=== PATIENT | male | born 1970 | race Caucasian/White ===

== ENCOUNTER 2016-05-16 16:02 | Observation (INO) | payer MEDICAID ==
[2016-05-16 16:03] VITALS: BMI 24.0
[2016-05-16 16:50] LABS: AUTOMATED BASOPHIL 0.6 % (0-2); AUTOMATED EOSINOPHIL 0.2 % (0-5); AUTOMATED LYMPH 14.5 % (17-44); AUTOMATED MONOCYTE 6.3 % (3-10); AUTOMATED NEUTROPHIL 78.4 % (45-76); MPV 7.9 fL (7.4-10.4)
[2016-05-16 16:57] LABS: ALL NEG? YES; MDMA* NEG (NEGATIVE); METHAMPHETAMINES NEG (NEGATIVE); OXYCODONE NEG (NEGATIVE)
[2016-05-16 16:58] LABS: BLOOD UREA NITROGEN 8 MG/DL (9-20); CALCIUM 9.1 MG/DL (8.4-10.2); CALCULATED OSMOLALITY 267 MOs/Kg (270-290); CHLORIDE 105 mEq/L (98-107); ETOH-MGDL < 10 mg/dL; GLUCOSE 92 MG/DL (70-99); SODIUM LEVEL 140 mEq/L (137-146); TOTAL PROTEIN 8.1 G/DL (6.3-8.2)
[2016-05-16 17:00] LABS: LEUKOCYTES/URINE NEG (NEGATIVE); NITRITE/URINE NEG (NEGATIVE); URINE OCCULT BLOOD NEG (NEG/TRACE)
[2016-05-16] MEDS ORDERED: GUAIFENESIN 200 MG/10 ML UDC PO PRN (17:37)
[2016-05-16] MEDS ORDERED: Docusate Sodium 100 MG CAP PO PRN (17:37)
[2016-05-16] MEDS ORDERED: LORAZEPAM 0.5 MG TAB PO PRN (17:37)
[2016-05-16] MEDS ORDERED: ONDANSETRON HCL 4 MG ODT TAB PO PRN (17:37)
[2016-05-16] MEDS ORDERED: ACETAMINOPHEN 325 MG/TAB TABLET PO PRN (17:37)
[2016-05-16] MEDS ORDERED: MAGNESIUM HYDROXIDE 30 ML BOTTLE PO PRN (17:37)
[2016-05-16] MEDS ORDERED: TEMAZEPAM 15 MG CAP PO PRN (17:37)
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
[2016-05-16] MEDS ORDERED: Vaccine Screening Complete SCH (20:00)
[2016-05-16] MEDS: NICOTINE 21 MG PATCH TOP SCH (21:02)
[2016-05-17] MEDS ORDERED: PNEUMOCOCCAL 0.5 ML VIAL IM ONE (08:00)
[2016-05-17] MEDS ORDERED: FLU VACCINE (Afluria) 0.5 ML DOSE IM ONE (08:00)
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
[2016-05-17] MEDS: NICOTINE 21 MG PATCH TOP SCH (12:23)
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
--- NOTE | 2016-05-18 16:07 | TUDEPART ---
Disposition: Trans. to Other Hospital ([facility]) Condition: Fair Education/Counseling Given To: Patient Education/Counseling Given Regarding: Diagnosis, Treatment, Prognosis, Follow Up Follow-up / Referrals: None,No Provider [Primary Care Provider] - One Week Decision to Transfer Time: 16:07 - Physical Exam Constitutional: Alert (Awake), No apparent distress Oriented to: Time, Person, Place Last recorded Vital Signs: Last Vital Signs Temp 98.6 F 05/18/16 11:49 Pulse 67 05/18/16 11:49 Resp 20 05/18/16 11:49 BP 121/69 05/18/16 11:49 Pulse Ox 98 05/18/16 11:49 Oxygen Pulse Oxygen Saturation 98 O2 Device Room Air Oxygen Flow Rate Fraction of Inspired Oxygen ( FIO2) - HEENT Head: Normal ( normocephalic) Eye Exam: Normal (PERRL, EOMI, Sclera white) Oropharynx: Normal (Pharynx:Moist without exudate,Gums-no swelling) ENT EAC: Normal TMJ: Normal Nose: No Symptoms Reported (septum midline) - Respiratory/Cardiovascular Respiratory: Normal - CTA (BBS clear to auscultation without adventitious sounds ) Cardiovascular: Normal (RRR without murmur, gallop or rub) - GI Auscultation: Normal (NABS) Palpation: Normal (Soft,No rebound or guarding, non distended) Tenderness: Non tender Villanueva's Sign: Negative - Musculoskeletal Back: Normal (Non-Tender) Extremities: Normal (Normal tone, Pulses 2+ No cyanosis or edema, FROM) - Integumentary Skin: Normal, Warm, Dry Lymphatics: Normal (no adenopathy) - Neurologic Memory Impaired: Normal Motor Function: Normal (Normal tone, Pulses 2+ No cyanosis or edema, FROM) Cranial Nerve: Normal (CN II-X11 intact sensation, strength 5/5) Cerebellar: Normal Mood Description: Anxious Perception: Normal
[2016-05-18 16:49] VITALS: BP 129/77; PULSE 76; TEMP 97.4
== END 2016-05-18 17:00 ==
LOC: ED 16:02 → EDINP 17:39 → TUOBSINP 18:49
PROVIDERS: ADMIT Emergency Medicine; ATTEND Emergency Medicine
DX: R45.851 Suicidal ideations (principal); F17.210 Nicotine dependence, cigarettes, uncomplicated
CPT/HCPCS: 36415; 80053; 80307; 81001; 85025; 86592; 99284; G0378; J3490; 90656; 90732